=== PATIENT | male | born 1940 | race Hispanic/Latino ===

== ENCOUNTER → 2022-01-27 14:30 | Outpatient (CLI) | payer OTHER, SELFPAY ==
[2022-01-27 16:41] LABS: Hematocrit 36.4 % (41-53); Hemoglobin 12.8 g/dL (13.5-17.5); Mean Corpuscular HGB Conc 35.1 % (30-36); Mean Corpuscular Hemoglobin 30.1 PG (26-34); Mean Corpuscular Volume 85.7 fL (80-100); Platelet Count 269 X10^3/uL (150-400); Red Blood Cell Count 4.24 X10^6/uL (4.5-5.9); Red Cell Distribution Width 15.1 % (11.6-14.8); White Blood Cell Count 6.9 X10^3/uL (4.5-11.0)
[2022-01-27 16:57] LABS: Hemoglobin A1C% w Est Avg Glu 5.6 % (4.0-6.0)
[2022-01-27 16:58] LABS: Alanine Aminotransferase 10 IU/L (<50); Albumin 3.8 g/dL (3.5-5.0); Albumin Globulin Ratio 1.1 (1.0-2.8); Alkaline Phosphatase 137 U/L (38-126); Aspartate Aminotransferase 21 IU/L (17-59); BUN Creatinine Ratio 25.5 (6-22); Bilirubin Total 0.8 mg/dL (0.2-1.3); Blood Urea Nitrogen 13 mg/dL (9-20); Calcium 8.8 mg/dL (8.4-10.2); Carbon Dioxide 28 mmol/L (22-32); Chloride 99 mmol/L (98-107); Cholesterol 129 mg/dL (140-199); Estimated Glomerular Filt Rate > 60 mL/min (>60); Globulin 3.5 g/dL (1.7-4.1); Glucose 152 mg/dL (80-110); HDL Cholesterol 42 mg/dL (40-60); HEMOLYSIS < 15 (0-50); LDL Cholesterol Calculated 72 mg/dL (<100); Potassium 3.8 mmol/L (3.4-5.1); Sodium 135 mmol/L (137-145); Total Protein 7.3 g/dL (6.3-8.2); Triglycerides 73 mg/dL (35-150)
[2022-01-27 17:27] LABS: TSH w/ Reflex to FT4 1.36 uIU/mL (0.47-4.68)
[2022-01-27 18:16] LABS: Prostate Specific Antigen 102 ng/mL (0.10-4.00)
== END ==
PROVIDERS: PCP Internal Medicine; Referring Provider Internal Medicine; Visit Provider Internal Medicine
DX: C61 Malignant neoplasm of prostate (principal); I10 Essential (primary) hypertension; C79.51 Secondary malignant neoplasm of bone; C79.01 Secondary malignant neoplasm of right kidney and renal pelvis; Z86.711 Personal history of pulmonary embolism
CPT/HCPCS: 36415; 80053; 80061; 83036; 84153; 84443; 85027

== ENCOUNTER → 2022-03-18 10:44 | Outpatient (CLI) | payer OTHER, SELFPAY ==
--- NOTE | 2022-03-18 10:45 | DI.NM.S_ITS ---
PROCEDURE: NM BONE SCAN WHOLE BODY RADIOPHARMACEUTICAL: 20.3 mCi Tc-99m MDP IV. INDICATIONS: Prosate caner, metastatic TECHNIQUE: Delayed whole-body scintigrams were obtained approximately 3-4 hours after intravenous injection of radiotracer. Anterior and posterior views were acquired from vertex to feet. COMPARISON: [facility], CT, CT CHEST ABD PEL W CON, 03/18/2022, 12:20. FINDINGS: There are multiple foci of abnormal osseous uptake involving the skull, cervical, thoracic and lumbar spine, sacrum, sternum, clavicles bilaterally, scapulae bilaterally, multiple ribs bilaterally, bony pelvis bilaterally, humeri bilaterally and femurs bilaterally, consistent with extensive osseous metastases. Increased uptake in the area of maxilla is indeterminate, which could be secondary to metastatic disease or dental disease IMPRESSION: Widespread osseous metastatic disease is present. Dictated by: Alexia Duff M.D. on 03/18/2022 at 16:15 Approved by: Alexia Duff M.D. on 03/18/2022 at 16:19
== END ==
PROVIDERS: PCP Internal Medicine; Referring Provider Internal Medicine Hematology & Oncology; Visit Provider Internal Medicine Hematology & Oncology
DX: C61 Malignant neoplasm of prostate (principal); C79.51 Secondary malignant neoplasm of bone
CPT/HCPCS: 78306; A9503

== ENCOUNTER → 2022-03-18 10:56 | Outpatient (CLI) | payer OTHER, SELFPAY ==
--- NOTE | 2022-03-18 10:57 | DI.CT.S_ITS ---
PROCEDURE: CT CHEST ABD PEL W CON INDICATIONS: Prostate cancer, metastatic TECHNIQUE: After the administration of oral and intravenous contrast, axial sections acquired from the supraclavicular neck to the pubic symphysis. Coronal and sagittal reformats were performed. For radiation dose reduction, the following was used: automated exposure control, adjustment of mA and/or kV according to patient size. COMPARISON: None. FINDINGS: Image quality: Excellent. CHEST: Lower Neck: No enlarged lymph nodes. Thyroid: Unremarkable. Axillae: No enlarged lymph nodes. Chest Wall: Unremarkable. Lungs and Airways: There is mild centrilobular emphysema at the apices. There is a small low-density right pleural effusion with compressive atelectasis in the dependent right lung. There is a trace left pleural effusion. No other acute airspace opacities. No pulmonary nodules. Pleura: No pneumothorax or pleural effusions. Heart: Heart size is normal. There is a small low-density pericardial effusion. Thoracic Vessels: The aorta and pulmonary arteries demonstrate normal size. Mediastinum and Elysia: No enlarged lymph nodes. Esophagus: No wall thickening. No hiatal hernia. ABDOMEN: Liver: Unremarkable. Gallbladder: Unremarkable. Biliary ducts: Unremarkable. Pancreas: Atrophic. Spleen: The spleen is not visualized and may splenule is present in the left upper quadrant. Adrenal Glands: Unremarkable. Kidneys and Ureters: No hydronephrosis. There is a large low-density right midpole renal cyst. Stomach and Bowel: Stomach, small bowel loops, and colon are unremarkable. Peritoneum: No abnormal intraperitoneal fluid. No free air. Ventral Wall: No hernia. Abdominal Nodes: No retroperitoneal or mesenteric adenopathy by size criteria. Vessels: Aorta and inferior vena cava are normal in size. PELVIS: Pelvic Organs: Unremarkable. Bladder: The bladder is partially fluid filled. A large right superior bladder diverticulum is present. Pelvic Nodes: No enlarged lymph nodes. Miscellaneous: There are small bilateral fat containing inguinal hernias. Bones: Innumerable sclerotic bony metastases are present throughout the visualized portions of the axial and appendicular skeleton. No wedge compression deformities of the thoracolumbar spine. IMPRESSION: 1. Innumerable bony metastases. No findings to suggest pathologic fracture of the spine or pelvis. 2. Small low-density right pleural effusion and compressive atelectasis. 3. No soft tissue metastases visualized within the thorax or abdomen. Dictated by: Vanessa Peña M.D. on 03/18/2022 at 17:11 Approved by: Vanessa Peña M.D. on 03/18/2022 at 17:15
== END ==
PROVIDERS: PCP Internal Medicine; Referring Provider Internal Medicine Hematology & Oncology; Visit Provider Internal Medicine Hematology & Oncology
DX: C61 Malignant neoplasm of prostate (principal); C79.51 Secondary malignant neoplasm of bone; J90 Pleural effusion, not elsewhere classified; J98.11 Atelectasis
CPT/HCPCS: 71260; 74177; 78306; A9503; Q9967